=== PATIENT | female | born 1935 | race Caucasian/White ===

== ENCOUNTER 2016-07-20 | Outpatient (CLI) | payer MEDICARE | END 2016-07-20 12:31 | disposition home or self-care (01) ==

== ENCOUNTER 2016-08-14 11:29 | Outpatient (CLI) | payer MEDICARE | END 2016-08-14 11:30 | disposition home or self-care (01) | DX: M16.0 Bilateral primary osteoarthritis of hip (principal) ==

== ENCOUNTER 2017-01-22 13:00 | Outpatient (CLI) | payer MEDICARE ==
--- NOTE | 2017-01-22 21:34 | PROVIDER PROGRESS NOTE ---
Palliative Care Follow Up - Referral Referring Provider: Dr. Dyer Time of Visit: [phone] Referral setting: Assisted living (Patient seen in her home setting which is [facility], it is a taxing and considerable effort for the patient to leave the setting, she has end stage dementia and causes great distress) Referral Reason: Failure to Thrive - Information Sources Records Reviewed: RN notes reviewed History obtained from: Family (daughter Alla), Caregiver (staff at [facility]) Exam limitations: Clinical condition (Patient with advanced dementia, speaks in word salad) - History of Present Illness Update Brief HPI Update: This is a 81 year old woman who has been at [facility] for 3 years now, she has progressive Alzheimers, her mother has it as well. She was placed as her behaviors were more problematic for her safety, wandering, despite caregivers needing to transition. The plan is at time of transition to EOL to take back home for hospice if possible. She is quite thin, has had a couple of falls since I saw her in July, a round of GI distress consistent with flu in the facility, and most recently an episode that sounds like it could have been a TIA on 01/19. Today I find her in courtyard, needing reapproaching to do exam, word salad, still ambulatory but spending more time sitting and "resting". She has had few pound weight loss and goals remain to focus on comfort and avoid any hospitalization. Social History - Living Situation Living arrangement: Assisted living (She has been at [facility] almost 3 year) Support System: Daughter Alla and son Elvin. Alla comes visits regularly. They bring her down to family gatherings every few weeks. Medications/Allergies - Medications Home Medications: Ambulatory Orders Medication Instructions Recorded Confirmed Acetaminophen [Tylenol] 500 mg PO DAILY PRN MDD 6 tabs 12/25/13 01/22/17 Bisacodyl Supp [Dulcolax Supp] [address] DAILY PRN 12/25/13 01/22/17 Loperamide HCl [Loperamide] 2 mg PO DAILY PRN 12/25/13 01/22/17 Magnesium Hydroxide [Milk of 30 ml PO DAILY PRN 12/25/13 01/22/17 Magnesia] QUEtiapine [SEROquel] 25 mg PO QPM 10/03/14 01/22/17 Mag Hydrox/Aluminum Hyd/Simeth 30 ml PO Q4HR 11/05/15 01/22/17 [Antacid-Simethicone Liquid] Guaifenesin 200 mg PO Q6HR PRN 01/22/17 01/22/17 Ibuprofen [Motrin] 400 mg PO DAILY 01/22/17 01/22/17 - Allergies Allergies/Adverse Reactions: Allergies Allergy/AdvReac Type Severity Reaction Status Date / Time Sulfa (Sulfonamide Allergy Unknown Verified 07/01/15 17:22 Antibiotics) Review of Systems - Constitutional Constitutional: reports: Fatigue, Weakness, Weight loss (07/22 111.8; 01/16 107.8) - Eyes Eyes: reports: Other (unknown) - Ears, Nose & Throat Ears, Nose & Throat: reports: Hearing loss - Cardiovascular Cariovascular: denies: Edema - Respiratory Respiratory: reports: SOB with exertion. denies: Cough, SOB at rest - Gastrointestinal Gastrointestinal: reports: Poor appetite. denies: Abdominal pain, Abdominal distention - Genitourinary Genitourinary: reports: Incontinence - Musculoskeletal Musculoskeletal: reports: Stiffness, Limited range of motion, Muscle weakness - Integumentary Integumentary: reports: Dryness - Neurological Neurological: reports: General weakness, Memory problems, Incoordination, Slurred speech (word salad) - Psychiatric Psychiatric: reports: Anxiety. denies: Depression - Hematologic/Lymphatic Hematologic/Lymphatic: denies: Recurrent infections - All Other Systems All Other Systems: reports: Reviewed and negative Physical Examination - Vital Signs Temperature: 36.2 C Pulse Rate: 92 Respiratory Rate: 18 O2 Saturation: 93 Blood Pressure: 112/62 - Physical Exam General Appearance: positive: Mild distress Eyes Bilateral: positive: Conjunctivae nml ENT: positive: No signs of dehydration Neck: positive: Trachea midline Respiratory: positive: Other (diminished in bases). negative: Wheezes, Rales, Rhonchi Cardiovascular: positive: Irregularly irregular Abdomen: positive: Nml bowel sounds, No distention. negative: Guarding Skin: positive: Pallor, Dryness, Other (feet with fungal thick nails, splitting , toes reddened but no s/s cellulitis at this point) Extremities: positive: Nml appearance, Other (feet with fungal nails, cracked and peeling left foot very tender to touch, unable to locate exact resource of distess) Neurologic/Psychiatric: positive: Disoriented to person, Disoriented to place, Disoriented to time, Slurred/abnml speech, Depressed mood/affect Palliative Care - POLST Patient has POLST: Yes POLST Status: DNR, Comfort Measures Pain: Location (left foot when examined, patient complained it hurt nonverbal, appeared to be toes/heel but uanable to examine closely with patient response. Walked on it fine.) Drowsiness: None Nausea: None Anxiety: Moderate (4-6) (Does not like to be approached or touched. Need to redirect often for exam) Dyspnea: None Anorexia: Weight loss (Patient eats standing and wandering weight 109 last month , this month 107.8) Insomnia: Other (unknown) Constipation: No Feelings of wellbeing/Perceived Quality of Life: Comment (patient appears more frail, at norm maybe more anxious unclear QOL at this time) Performance Status: Patient appears more frail, working harder to get from sitting to standing, was wandering more, now rests more in chairs and in courtyard. Is still feeding self, mostly finger foods. Total assist for ADLS - Palliative Care Discussion: Spoke with daughter, aware of incident, in agreement with visit. Have brought her down but seems to recognize her for the first few minutes but then memory seems to fade away. Recognizes she remains quite frail. Message left on outcome of visit with request to call. Impression and Recommendations - Palliative Care Impression: This is a 81 year old woman with progressive Alzheimers with neuropsychiatric behaviors of anxiety, agitation, and wandering. She presented last week with possible TIA. Patient is very frail, some functional decline and weight loss. Goals remain to focus on avoiding hospitalization and comfort. Recommendations/Counseling Done: 1. Weight loss most likely multifactorial in origin. Will order weekly weights, patient "grazes", is encouraged to eat snacks and meals. Will add health shakes if further weight loss. 2. Fungal nails. Unclear if patient would be able to tolerate visit to fiberglass product tester, follow up with daughter if feels would be able to attempt. Left footwear production machine operator to touch with putting on socks, unclear if nails, no s/s cellutitis at this time, feet reddened/sima in color. Discussed with facility nurse to try and file. 3.Medication changes. Will discontinue ibuprofen, put on after fall with injury in July, no other indication for one time a day dosing. 4. Advance care planning. POLST in place, goal if possible to have transition back to home setting for EOL care with hospice when time. Time Spent: 30 minutes in coordination with facility staff for evaulation and care plan.
== END 2017-01-22 13:01 | disposition home or self-care (01) ==
LOC: PC 13:00
PROVIDERS: ATTEND Nurse Practitioner Adult Health
DX: Z51.5 Encounter for palliative care (principal); R63.4 Abnormal weight loss; B35.1 Tinea unguium; R62.7 Adult failure to thrive; F03.91 Unspecified dementia, unspecified severity, with behavioral disturbance; Z91.83 Wandering in diseases classified elsewhere; R45.1 Restlessness and agitation; Z91.81 History of falling; R53.83 Other fatigue; R53.1 Weakness; R06.09 Other forms of dyspnea; R32 Unspecified urinary incontinence; F41.9 Anxiety disorder, unspecified; M79.672 Pain in left foot; Z66 Do not resuscitate

== ENCOUNTER 2017-04-19 15:15 | Outpatient (CLI) | payer MEDICARE ==
--- NOTE | 2017-04-19 20:36 | CONSULTATION NOTE ---
Palliative Care Follow Up - Referral Referring Provider: Dr. Rito Dyer Time of Visit: [phone] Referral setting: Assisted living Referral Reason: COPD Exacerbation/Lip injury - Information Sources Records reviewed: RN notes reviewed History/Review of Systems obtained from: Caregiver (clinical staff) Exam limitations: Clinical condition (patient with only occasional word salad) - History of Present Illness Update Brief HPI Update: This is a 81-year-old woman with advanced Alzheimer's who had presented last week with significant decline attributed to COPD exacerbation along with concern for increase in lower extremity edema. She has recovered somewhat, this is thought mostly likely to be to attributed to a viral illness. She has though had a fall on 04 18, was found sitting on the floor with blood on her lower lip and chin and presents with an acute trauma injury to her lower lip. There is slight swelling though no signs or symptoms of infection but very tender on exam. She has not recovered back to her baseline level of functioning, she is ambulatory but usually wanders, she has needed assistance from sitting to standing, and spends most of her time sitting in the main room. She has not had any further weight loss, though staff do perceive she is eating and drinking less. She does have fairly fragile appearance, is pale in color, is still with some respiratory effort with activity does not present with any distress today. She has some residual crackles in her right lower lung but her edema has diminished to trace. Social History - Living Situation Living arrangement: Assisted living (Has been at [facility] for 3 years) Support System: Daughter Alla traveling currently; Son Elvin lives in [place]. Medications/Allergies - Medications Home Medications: Ambulatory Orders Medication Instructions Recorded Confirmed Acetaminophen [Tylenol] 500 mg PO DAILY PRN MDD 6 tabs 12/25/13 04/19/17 Bisacodyl Supp [Dulcolax Supp] 10 mg CO DAILY PRN 12/25/13 04/19/17 Loperamide HCl [Loperamide] 2 mg PO DAILY PRN 12/25/13 04/19/17 Magnesium Hydroxide [Milk of 30 ml PO DAILY PRN 12/25/13 04/19/17 Magnesia] QUEtiapine [SEROquel] 25 mg PO QPM 10/03/14 04/19/17 Mag Hydrox/Aluminum Hyd/Simeth 30 ml PO Q4HR 11/05/15 04/19/17 [Antacid-Simethicone Liquid] guaiFENesin [Guaifenesin] 200 mg PO Q6HR PRN 01/22/17 04/19/17 Albuterol Sulf [Ventolin Hfa 2 puffs INH Q4HR PRN 04/11/17 04/19/17 Inhaler] LORazepam [Lorazepam Intensol] 0.25 mg PO Q6HR PRN 04/11/17 04/19/17 Morphine Sulfate [Morphine Sulf 5 mg PO Q4HR PRN 04/11/17 04/19/17 Oral (Roxanol)] - Allergies Allergies/Adverse Reactions: Allergies Allergy/AdvReac Type Severity Reaction Status Date / Time Sulfa (Sulfonamide Allergy Unknown Verified 07/01/15 17:22 Antibiotics) Review of Systems - Constitutional Constitutional: reports: Poor appetite (eating about 25% of meals per CG; patient does not sit to eat but "grazes" difficult to quantify intake), Weight stable (101) - Ears, Nose & Throat Ears, Nose & Throat: reports: Dental decay, Other (fall and cut lip yesterday) - Cardiovascular Cardiovascular: reports: Decr. exercise tolerance (wanders less; more just sits in main living area; this is a decline) - Respiratory Respiratory: reports: SOB with exertion. denies: Cough, Wheezing - Genitourinary Genitourinary: reports: Incontinence - Musculoskeletal Musculoskeletal: reports: Muscle weakness - Neurological Neurological: reports: Memory problems (Alz 7C) - Psychiatric Psychiatric: reports: Other (wanders and sometimes anxious) - Other Findings Other Findings: ROS with clinical staff Physical Exam - Vital Signs Temperature: 96.7 C Pulse Rate: 88 Respiratory Rate: 24 O2 Saturation: 95 (ra @rest) Blood Pressure: 122/52 - Physical Exam General Appearance: positive: Mild distress, Anxious Eyes Bilateral: positive: Normal inspection ENT: positive: Other (swelling lower lip with 2-3 areas of small cuts; limited by patient's allowing me to exam; but painful; mouth with decaying teeth) Neck: positive: Trachea midline. negative: Lymphadenopathy (R), Lymphadenopathy (L) Cardiovascular: positive: Irregular, Tachycardia Respiratory: positive: Diminished throughout, Other (fine residual crackles right lower lobe). negative: Wheezes Abdomen: positive: Non-tender, Soft Skin: positive: Pallor Extremities: positive: Pedal edema (slight/trace pedal edema right greater than left), Other (needed assistance to get from sitting to standing; appears weaker but ambulatory) Neurologic/Psychiatric: positive: Disoriented to person, Disoriented to place, Disoriented to time, Unintelligible speech Palliative Care - POLST Patient has POLST: Yes POLST Status: DNR, Comfort Measures Pain: Location (lower lip on exam) - Palliative Care Discussion: Did contact her daughter Alla with an update. My perceptions that she is continuing quite fragile and frail, unclear if she will stabilize or continue to decline. Reiterated goals to focus on comfort and support. Discussed adding nutritional supplement given patient's diminished in take though she has remained weight neutral. Family will obtain supplemental drinks from local pharmacy/[facility]. Impression and Recommendations - Palliative Care Impression: This is a 81-year-old woman with advanced Alzheimer's with recent upper respiratory infection/viral illness resulting in exacerbation of COPD. She remains quite fragile, has responded some to some acute interventions, and now presents with acute trauma from a fall resulting in lip wound. Patient remains in the context of a failure to thrive, with family goals to focus on comfort. Recommendations/Counseling Done: 1. COPD exacerbation. Patient presents today without wheezes and improved respiratory status. Her vital signs are stable, does not show any signs further of progression patient at high risk for pneumonia. 2. Lower extremity edema. She presents today with just trace this is improved. 3. Lower lipid edema as a result of trauma. Prescription and instruction to apply a and D ointment to the lip as patient allows twice a day and monitor for signs or symptoms of infection. Patient very resistant to any kind of oral care. 4. Failure to thrive. Patient to be supplied with nutritional drinks supplement twice a day and continued weekly weights. 5. Advanced care planning. Reviewed patient's ongoing decline and symptoms of failure to thrive. Will continue to monitor recognizing patient is quite fragile. Time Spent: Time spent 30 minutes with greater than 50% of this done and coordination of care with clinical staff, coordinating exam, and follow-up with daughter providing anticipatory guidance.
== END 2017-04-19 15:16 | disposition home or self-care (01) ==
LOC: PC 15:15
PROVIDERS: ATTEND Nurse Practitioner Adult Health
DX: Z51.5 Encounter for palliative care (principal); J44.1 Chronic obstructive pulmonary disease with (acute) exacerbation; R60.0 Localized edema; R62.7 Adult failure to thrive; G30.9 Alzheimer's disease, unspecified; F02.80 Dementia in other diseases classified elsewhere, unspecified severity, without behavioral disturbance, psychotic disturbance, mood disturbance, and anxiety; Z79.891 Long term (current) use of opiate analgesic; Z79.51 Long term (current) use of inhaled steroids; R06.09 Other forms of dyspnea; R32 Unspecified urinary incontinence; Z66 Do not resuscitate

== ENCOUNTER 2017-06-25 12:15 | Outpatient (CLI) | payer MEDICARE ==
--- NOTE | 2017-06-25 18:08 | CONSULTATION NOTE ---
Palliative Care Follow Up - Referral Referring Provider: Dr. Imtiaz Vance Time of Visit: [id number] Referral setting: Assisted living (Is a taxing considerable effort for the patient to leave the facility secondary to her advanced dementia and behavioral disturbances) Referral Reason: COPD Exacerbation - Information Sources Records reviewed: RN notes reviewed History/Review of Systems obtained from: Caregiver (clinical staff) Exam limitations: Clinical condition (Patient with advanced dementia unable to participate in exam) - History of Present Illness Update Brief HPI Update: This is an 82-year-old woman with advanced Alzheimer his presented over the last few days with increased shortness of breath, decreased O2 sats noted at 84% , as well as inspiratory and expiratory wheezing. She has not had any cough, fevers, or lethargy. She has had some decrease in intake today, though for the most part is staying hydrated, she is on health shakes twice daily. She also has developed some lower extremity edema, though the patient does wander, and spends most of her time with her feet dependent. She is quite thin she has gained a few pounds over the last few months, unclear if this is over a short period of time as far as increased swelling or longer I find the patient with significant respiratory effort with a respiratory rate of 28, with upper lobes both anteriorly and posteriorly with inspiratory and expiratory wheezing. She does have some crackles in her right lower lobe. She does not have any cough, fever, or his symptoms reported such as chills or increased confusion. She is sitting at the table and is quite adamant in her conversation though it is word salad. She does have some lower extremity edema though it is mostly centered around her ankle goes about up to midcalf, And her legs are mostly dependent and she does have poor nutritional status. She did have an exacerbation in April that did appear to be his CHF.Staff report overall she is somewhat more fragile, but she remains quite endeared to staff and her family.Staff have been using the morphine sulfate 0.25 mils which equals 5 mg for as needed dosing for shortness of breath which has provided patient relieThe use has escalated over the last 3 -4 days needing about 3-4 times. Social History - Living Situation Living arrangement: Assisted living Support System: Patient has a daughter and son who oversee her care. Beto visits her on a regular basis, she had seen her a couple weeks ago and she was doing actually quite well. They both recognize her mother is quite frail and if had adequate warning and was appropriate would bring her home at the time for hospice care. Medications/Allergies - Medications Home Medications: Ambulatory Orders Medication Instructions Recorded Confirmed Acetaminophen [Tylenol] 500 mg PO DAILY PRN MDD 6 tabs 12/25/13 06/25/17 Bisacodyl Supp [Dulcolax Supp] 10 mg [place] DAILY PRN 12/25/13 06/25/17 Loperamide HCl [Loperamide] 2 mg PO DAILY PRN 12/25/13 06/25/17 Magnesium Hydroxide [Milk of 30 ml PO DAILY PRN 12/25/13 06/25/17 Magnesia] QUEtiapine [SEROquel] 25 mg PO QPM 10/03/14 06/25/17 Mag Hydrox/Aluminum Hyd/Simeth 30 ml PO Q4HR 11/05/15 06/25/17 [Antacid-Simethicone Liquid] guaiFENesin [Guaifenesin] 200 mg PO Q6HR PRN 01/22/17 06/25/17 Albuterol Sulf [Ventolin Hfa 2 puffs INH Q4HR PRN 04/11/17 06/25/17 Inhaler] LORazepam [Lorazepam Intensol] 0.25 mg PO Q6HR PRN 04/11/17 06/25/17 Morphine Sulfate [Morphine Sulf 5 mg PO Q4HR PRN 04/11/17 06/25/17 Oral (Roxanol)] Furosemide [Lasix] 20 mg PO DAILY 06/25/17 06/25/17 Prednisone 40 mg PO DAILY 06/25/17 06/25/17 - Allergies Allergies/Adverse Reactions: Allergies Allergy/AdvReac Type Severity Reaction Status Date / Time Sulfa (Sulfonamide Allergy Unknown Verified 07/01/15 17:22 Antibiotics) Review of Systems - Constitutional Constitutional: reports: Fatigue, Weight gain (104) - Respiratory Respiratory: reports: Wheezing, SOB at rest, SOB with exertion, Other (unable to measure sats about 84% fo r24 hours). denies: Cough - Gastrointestinal Gastrointestinal: reports: Poor appetite (for today reported) - Genitourinary Genitourinary: reports: Incontinence - Musculoskeletal Musculoskeletal: reports: Muscle weakness - Integumentary Integumentary: reports: Dryness - Neurological Neurological: reports: General weakness, Memory problems, Incoordination - Psychiatric Psychiatric: reports: Behavior disturbances (agitation at times; difficult with personal care changing diapers at times) - Other Findings Other Findings: Limited review of systems secondary to patient's dementia as well as rotating clinical staff Physical Exam - Vital Signs Temperature: 98.2 C Pulse Rate: 80 Respiratory Rate: 28 O2 Saturation: 91 (after warming fingers) Blood Pressure: 112/78 - Physical Exam General Appearance: positive: Moderate distress (using resp. muscles; very pressed with word salad) Eyes Bilateral: positive: Normal inspection ENT: positive: Dry mucous membranes, Other (missing many teeth) Neck: positive: Trachea midline Cardiovascular: positive: Irregular Respiratory: positive: Wheezes, Rales (right lower lobe crackles, left diminished; anteriorly and posteriorly upper lobes with insp. and exp. wheezing) Abdomen: positive: Other (concave/thin) Skin: positive: Pallor, Dryness Extremities: positive: Pedal edema (centered in ankles and half way up calves; doughy) Neurologic/Psychiatric: positive: Disoriented to person, Disoriented to place, Disoriented to time, Weakness, Unintelligible speech Palliative Care - POLST Patient has POLST: Yes POLST Status: DNR, Comfort Measures Pain: No pain Dyspnea: Severe (7-10) Anorexia: Moderate (4-6) Performance Status: Patient's Mary to get from sitting to standing from chair, did need some assistance. She is ambulating though much slower than previously. She has a shuffled gait and wanders around the pod. She is totally dependent for bathing , she is incontinent of bowel and bladder, she mostly finger feeds and will not allow staff to assist her with eating. She has been on shakes twice a day for the last couple months - Palliative Care Discussion: Follow-up call with her daughter, related to patient's most recent exacerbation and findings of exam. Will go ahead and treat COPD exacerbation, at this point in time there is no signs or symptoms of infection to warrant weighing benefits and burdens of antibiotics. She does have the morphine and lorazepam for comfort measures, reiterated patient is quite frail, and will continue to most likely decline. She is at high risk for sequela of a fall or progression of her respiratory distress into pneumonia. Impression and Recommendations - Palliative Care Impression: This is a nixon 82-year-old woman who is with advanced Alzheimer's, presenting with a COPD exacerbation of 48-72 hours. Goals are to focus on comfort measures , follow-up with daughter will go ahead and treat current symptoms. Recommendations/Counseling Done: 1. COPD exacerbation. I did respond nicely to a prednisone boost last time, will go ahead and order 40 mg 5 days. Patient may need to be on some maintenance steroid given her underlying COPD, she is unable to participate as far as using inhaler. I did warm up her fingers and found her not to be hypoxic , she does have very poor circulation. Staff did try oxygen for comfort, patient with her dementia refuses and takes it off. Staff are instructed to use the morphine for any signs or symptoms of respiratory distress, at this point in time she does not want to qualify for oxygen. I suspect this would be more problematic than of assistance at this time. 2. lower extremity edema will go ahead and treat with furosemide 20 mg 3 days she does have adequate blood pressure to sustain this, she is taking some fluids. 3. Alzheimer's with behavioral disturbances. Patient with some anxiety, though she did allow me to examine her today. She does have wandering, intermittent agitation and anxiety. They do have tools such as Lorazepam to manage her if needed. Staff usually redirected and distracted with good success. 4. Advanced care planning. Follow-up with daughter reiterated goals of focus on comfort, will treat her current symptoms and evaluate. Staff is to contact me if her symptoms worsen at that point time we can weigh benefits and burdens of further treatment or pursuit of antibiotics if indicated as well as consider transitioning to hospice. Time Spent: 45 minutes with greater than 50% of this done and coordination of care with clinical staff, offsite pharmacy, and follow-up with daughter as well as examination and evaluation of patient.
== END 2017-06-25 12:16 | disposition home or self-care (01) ==
LOC: PC 12:15
PROVIDERS: ATTEND Nurse Practitioner Adult Health
DX: Z51.5 Encounter for palliative care (principal); J44.1 Chronic obstructive pulmonary disease with (acute) exacerbation; R60.0 Localized edema; G30.9 Alzheimer's disease, unspecified; F02.81 Dementia in other diseases classified elsewhere, unspecified severity, with behavioral disturbance; F41.9 Anxiety disorder, unspecified; Z79.891 Long term (current) use of opiate analgesic; Z79.51 Long term (current) use of inhaled steroids; R53.83 Other fatigue; R06.09 Other forms of dyspnea; M62.81 Muscle weakness (generalized); Z66 Do not resuscitate

== ENCOUNTER 2017-07-04 15:30 | Outpatient (CLI) | payer MEDICARE ==
--- NOTE | 2017-07-04 19:53 | CONSULTATION NOTE ---
Palliative Care Follow Up - Referral Referring Provider: Dr. Rito Dyer Time of Visit: [id number] Referral setting: Assisted living Referral Reason: COPD/Dementia/Failure to Thrive - Information Sources Records reviewed: Previous records reviewed History/Review of Systems obtained from: Caregiver (facility care staff) Exam limitations: Clinical condition (Patient nonverbal and unable to participate in the exam.) - History of Present Illness Update Brief HPI Update: An 82-year-old woman with advanced Alzheimer's F AST 7 be, who presented last week with increased shortness of breath, decreased O2 sats at 84% as well as inspiratory and expiratory wheezing. She had no cough fevers or lethargy and was treated for a COPD exacerbation with prednisone and Lasix, she did recover somewhat but about back to her baseline by the end of the week. She has continued to eat less be much more weaker having good and bad days. A good day though she does come out to sit at the table she kind of picks at her food, bad days she tends to spend more time in her bed. I am today I find her actually quite difficult to arouse, her 3 right fingers on her hands were quite blue and cool her feet had some mild swelling or cold to touch appeared to be mottling. Her wheezing was much improved but she did have rhonchi down her right lower lobe. She had a significant change in last 24 hours. Patient had had a similar episode back in March 2017 at that point in time we had weigh benefits and burdens again of treatment with the daughter recognizing that she has had ongoing decline and increasingly perceived poor quality of life. I did call the daughter with my findings, weighing benefits and burdens of further intervention, the family overall has come to the place is a family looking at this is extending her suffering, would like to just focus on comfort , and discussed my recommendation for transitioning to hospice. There had been original conversation about her going home with hospice support at this point in time, when I called the daughter though unfortunately she is at a dog show, and I suspect at this point in time home place is most likely "[facility]" home. She did present with respiratory effort at 22 did decrease to 16 respiratory rate after small dose of morphine. This does appear to provide comfort for her. She is a little tacky at 88 and her blood pressure is 92/54. They were unable to wake her this week. She is sitting around 104. Social History - Living Situation Living arrangement: Assisted living (She has been the resident at home place for about 3 years, she was placed here after trying to manage her at home but she had significant wandering issues. She has up to the last few months actually still gone down and visited and been with family from time to time, and she has become more frail this is not been as easy.) Medications/Allergies - Medications Home Medications: Ambulatory Orders Medication Instructions Recorded Confirmed Acetaminophen [Tylenol] 500 mg PO DAILY PRN MDD 6 tabs 12/25/13 07/04/17 Bisacodyl Supp [Dulcolax Supp] 10 mg [place] DAILY PRN 12/25/13 07/04/17 Loperamide HCl [Loperamide] 2 mg PO DAILY PRN 12/25/13 07/04/17 Magnesium Hydroxide [Milk of 30 ml PO DAILY PRN 12/25/13 07/04/17 Magnesia] QUEtiapine [SEROquel] 25 mg PO QPM 10/03/14 07/04/17 Mag Hydrox/Aluminum Hyd/Simeth 30 ml PO Q4HR 11/05/15 07/04/17 [Antacid-Simethicone Liquid] guaiFENesin [Guaifenesin] 200 mg PO Q6HR PRN 01/22/17 07/04/17 Albuterol Sulf [Ventolin Hfa 2 puffs INH Q4HR PRN 04/11/17 07/04/17 Inhaler] LORazepam [Lorazepam Intensol] 0.25 mg PO Q6HR PRN 04/11/17 07/04/17 Morphine Sulfate [Morphine Sulf 5 mg PO Q4HR PRN 04/11/17 07/04/17 Oral (Roxanol)] Hyoscyamine [Levsin] 0.125 - 0.25 mg SL Q4HR PRN 07/04/17 07/04/17 - Allergies Allergies/Adverse Reactions: Allergies Allergy/AdvReac Type Severity Reaction Status Date / Time Sulfa (Sulfonamide Allergy Unknown Verified 07/01/15 17:22 Antibiotics) Review of Systems - Constitutional Constitutional: reports: Poor appetite - Cardiovascular Cardiovascular: reports: Decr. exercise tolerance - Respiratory Respiratory: reports: SOB at rest, SOB with exertion - Genitourinary Genitourinary: reports: Incontinence - Musculoskeletal Musculoskeletal: reports: Other (needing more assistance; used to wander around the facility; currently in bed) - Neurological Neurological: reports: General weakness - Psychiatric Psychiatric: reports: Anxiety - Other Findings Other Findings: ROS limited Physical Exam - Vital Signs Temperature: 97.3 C Pulse Rate: 88 Respiratory Rate: 22 (16 after MS) O2 Saturation: 87 (cold hands difficult to measure; low as 80% during exam) Blood Pressure: 92/54 - Physical Exam General Appearance: positive: Mild distress (using accessory muscles; ;improved after MS), Lethargic Eyes Bilateral: positive: Normal inspection ENT: positive: Dry mucous membranes Neck: positive: No JVD, Trachea midline Cardiovascular: positive: Tachycardia Respiratory: positive: Wheezes (expiratory wheezes anteriorly upper lobes;), Rhonchi (Right lower lobe) Abdomen: positive: Soft Skin: positive: Mottled, Pallor Neurologic/Psychiatric: positive: Unintelligible speech Palliative Care - POLST Patient has POLST: Yes POLST Status: DNR, Comfort Measures Performance Status: Patient needed assistance from laying to sitting to be able to listen to lungs. She is very lethargic and difficult to arouse. Nurses presents that this is a significant change in last 24 hours. She is dependent on all ADLs, she had been previously eating independently with just finger foods and her health during - Palliative Care Discussion: Patient does fluctuate in status, having good and bad days. She is unable to really express or communicate her distress, staff do report though if she intermittently seems in respiratory distress the morphine does appear to help. They use it about once a day it looks like on average over the last month. Patient does appear very frail, did call and talk to daughter Alla, is reviewing their goals of care. She said last time she seen her mom had not recognized her, there are other family that visits have seen a significant decline as well, and they are at this point she feels ready to let her go. She is currently not available her home again until Sunday, I did discuss would be in contact with hospice given the goals of care comfort, she or her brother will need to sign for the benefit. At this point in time the support would be for the staff in this current setting as well as would provide a layer of comfort and oversight for her transitioning. Patient has fluctuated before, though does feel like at this point in time she is on a downward spiral, and given conversation with daughter at this point in time will just use comfort meds versus try to intervene. Patient unable to tolerate oxygen in previous experiences, tends to pull it off and causes more distress. Morphine working quite well currently to manage her we will continue with just pharmacological support Impression and Recommendations - Palliative Care Impression: This is an 82-year-old woman with yet another exacerbation of her COPD, possible underlying infection though does not present with fever or cough. She does have respiratory effort, which is controlled currently with morphine. She continues to have functional, cognitive, and ongoing difficulty getting adequate calories. Her weight stabilized briefly with the introduction of Ensure. In the context of her most recent decline the decision was made to focus on comfort only no further interventions other than those that are supportive and caring for her. Transition to hospice is recommended and accepted. Recommendations/Counseling Done: 1. COPD exacerbation and respiratory distress. Patient does present with hypoxia, she is easily palliated with small doses of morphine. With current goals of care, focus on comfort, encouragement given to use the morphine for comfort, I did order Tikosyn mean 0.125 mg ODT 2 tabs every 4 hours as needed for secretions though she is quite dry at this point in time. 2. Constipation. Unable to confirm her last bowel movement, patient dislikes pills, given the increased use of morphine if patient does awaken will add MiraLAX 17 g M in her hot chocolate to manage her bowels. 3. Dementia. Patient does get quite anxious, she does have Lorazepam to use if this escalates to this current.. 4. Advanced care planning. Patient does appear to be declining today, she presents with a waddling, hypoxia, respiratory distress, tachycardia, and hypotension. Counseling with her daughter as far as anticipatory guidance, a goals of care, decision made to transition to hospice. Call to Dr. Dyer, he is in agreement, I facilitated referral with [facility] hospice. Unfortunately they are not available until Sunday, staff do feel like they have the tools to manage in the meantime. And will check tomorrow if there is further symptom needs. Time Spent: 60 minutes with greater than 50% of this done in counseling with family regarding goals of care and anticipatory guidance.follow-up with coordination of staff with PCP, clinical staff, and hospice.
== END 2017-07-04 15:31 | disposition home or self-care (01) ==
LOC: PC 15:30
PROVIDERS: ATTEND Nurse Practitioner Adult Health
DX: Z51.5 Encounter for palliative care (principal); J44.1 Chronic obstructive pulmonary disease with (acute) exacerbation; R06.03 Acute respiratory distress; R09.02 Hypoxemia; K59.00 Constipation, unspecified; F03.90 Unspecified dementia, unspecified severity, without behavioral disturbance, psychotic disturbance, mood disturbance, and anxiety; R00.0 Tachycardia, unspecified; I95.9 Hypotension, unspecified; Z79.891 Long term (current) use of opiate analgesic; Z79.51 Long term (current) use of inhaled steroids; Z66 Do not resuscitate